=== PATIENT | female | born 1995 | race Caucasian/White ===

== ENCOUNTER 2017-11-09 16:20 | Emergency (ER) | payer BC ==
[~2017-11-09] VITALS: Ht 170.2 cm; Wt 81.1 kg
[~2017-11-09 16:20] MED LIST: ABILIFY15 MG PO; ADDERALL10 MG PO; CLONAZEPAM0.5 MG PO; LAMICTAL25 MG PO; LEXAPRO5 MG PO; PROZAC20 MG PO; SAPHRIS5 MG SL; TRAZODONE HCL50 MG PO
[2017-11-09 17:07] VITALS: BP 127/80
== END 2017-11-09 18:30 | disposition left against medical advice (07) ==
LOC: EME 16:20
DX: R21 Rash and other nonspecific skin eruption (principal); Z53.21 Procedure and treatment not carried out due to patient leaving prior to being seen by health care provider

== ENCOUNTER 2017-11-17 00:07 | Emergency (ER) | payer BC ==
[~2017-11-17] VITALS: Ht 167.6 cm; Wt 79.7 kg
[2017-11-17 00:20] VITALS: BP 120/88
== END 2017-11-17 00:33 | disposition left against medical advice (07) ==
LOC: EME 00:07
DX: M54.9 Dorsalgia, unspecified (principal); Z53.21 Procedure and treatment not carried out due to patient leaving prior to being seen by health care provider

== ENCOUNTER 2018-01-27 12:25 | Emergency (ER) | payer OTHER ==
[~2018-01-27] VITALS: Ht 170.2 cm; Wt 80.5 kg
[2018-01-27 12:47] LABS: HEMATOCRIT 43.3 % (36.0-46.0); HEMOGLOBIN 14.2 G/DL (11.9-15.5); MCH 27.1 PG (29.0-34.0); MCHC 32.8 G/DL (30.0-36.0); MCV 82.6 FL (83-99); PLATELET COUNT 259 K/uL (156-360); RBC DIS.WIDTH-CV 13.5 % (11.8-14.6); RBC DIS.WIDTH-SD 40.8 % (39-53); RED BLOOD COUNT 5.24 M/uL (3.80-5.20); WHITE BLOOD COUNT 7.1 K/uL (4.1-10.2)
[2018-01-27 12:57] LABS: ALBUMIN 4.3 g/dL (3.2-4.8); CHLORIDE 106 mEq/L (99-109); POTASSIUM 4.4 mEq/L (3.7-5.4); SODIUM 140 mEq/L (136-147)
[2018-01-27 12:59] LABS: GLUCOSE 78 mg/dL (70-99)
[2018-01-27 13:00] LABS: TOTAL PROTEIN 7.4 g/dL (6.4-8.3)
[2018-01-27 13:01] LABS: TOTAL BILIRUBIN 0.5 mg/dL (0.0-1.0)
[2018-01-27 13:03] LABS: ALKALINE PHOSPHATASE 61 IU/L (3-129); CREATININE 0.8 mg/dL (0.6-1.3); GFR ESTIMATE (CALCULATED) > 59 mL/min/
[2018-01-27 13:04] LABS: UREA NITROGEN (BUN) 15 mg/dL (9-23)
[2018-01-27 13:05] LABS: AST (GOT) 14 IU/L (2-34)
[2018-01-27 13:06] LABS: ALT (GPT) 10 IU/L (3-49)
[2018-01-27 13:08] LABS: QUANTITATIVE HCG < 4.0 MIU/ML
[2018-01-27 13:48] LABS: APPEARANCE SL.HAZY ((CLEAR)); BILIRUBIN NEGATIVE; BLOOD LARGE; COLOR YELLOW ((YELLOW)); GLUCOSE (STRIP) NEGATIVE; KETONES NEGATIVE; LEUKOCYTES NEGATIVE; NITRITE NEGATIVE; PROTEIN (STRIP) 30; SPECIFIC GRAVITY 1.025 (1.000-1.030); UROBILINOGEN 0.2 MG/DL (0.2-1.0)
[2018-01-27 13:56] LABS: BACTERIA RARE /HPF; EPITHELIAL CELLS RARE /HPF; MUCUS TRACE /LPF; RED BLOOD CELLS NONE SEEN /HPF (0-5); UCUL ADDED? NO; WHITE BLOOD CELLS 0-5 /HPF (0-5)
[2018-01-27 14:44] LABS: LIPASE 7 U/L (1.0-51.0)
[2018-01-27] MEDS ORDERED: BENTYL20 MG PO (17:07)
[2018-01-27] MEDS ORDERED: ZOFRAN ODT4 MG PO (17:07)
[2018-01-27 17:19] VITALS: BP 154/87
== END 2018-01-27 17:20 | disposition home or self-care (01) ==
LOC: EME 12:25
DX: R10.84 Generalized abdominal pain (principal); R11.0 Nausea; R19.7 Diarrhea, unspecified
CPT/HCPCS: 74019; 74022; 76856; 80053; 81003; 83690; 84702; 85027; 99281; 99284

== ENCOUNTER 2018-02-12 00:17 | Emergency (ER) | payer OTHER ==
[~2018-02-12] VITALS: Ht 170.2 cm; Wt 79.5 kg
[~2018-02-12 00:17] MED LIST changes: +BENTYL20 MG PO; +ZOFRAN ODT4 MG PO
[2018-02-12 00:25] VITALS: BP 130/86
[2018-02-12] MEDS ORDERED: NAPROSYN500 MG PO (01:04)
[2018-02-12] MEDS ORDERED: FLEXERIL10 MG PO (01:04)
== END 2018-02-12 02:32 | disposition left against medical advice (07) ==
LOC: EME 00:17
DX: S43.401A Unspecified sprain of right shoulder joint, initial encounter (principal); F41.9 Anxiety disorder, unspecified; F32.9 Major depressive disorder, single episode, unspecified; F31.9 Bipolar disorder, unspecified; Z88.8 Allergy status to other drugs, medicaments and biological substances
CPT/HCPCS: 73030; 99281; 99282

== ENCOUNTER 2018-03-31 21:42 | Emergency (ER) | payer OTHER ==
[~2018-03-31] VITALS: Ht 167.6 cm; Wt 78.2 kg
[~2018-03-31 21:42] MED LIST changes: +FLEXERIL10 MG PO; +NAPROSYN500 MG PO
[2018-03-31] MEDS ORDERED: VALTREX1000 MG PO (23:40)
[2018-03-31] MEDS ORDERED: KENALOG,ARISTOC60 ML TP (23:40)
[2018-03-31 23:49] VITALS: BP 135/95
== END 2018-03-31 23:51 | disposition home or self-care (01) ==
LOC: EME 21:42
DX: B02.9 Zoster without complications (principal); Z88.8 Allergy status to other drugs, medicaments and biological substances
CPT/HCPCS: 99281; 99284

== ENCOUNTER 2018-04-02 03:58 | Emergency (ER) | payer OTHER ==
[~2018-04-02] VITALS: Ht 167.6 cm; Wt 78.8 kg
[~2018-04-02 03:58] MED LIST changes: +KENALOG,ARISTOC60 ML TP; +VALTREX1000 MG PO
[2018-04-02 05:19] VITALS: BP 142/91
== END 2018-04-02 05:21 | disposition home or self-care (01) ==
LOC: EME 03:58
DX: F12.10 Cannabis abuse, uncomplicated (principal); R07.89 Other chest pain; R45.89 Other symptoms and signs involving emotional state; T43.615A Adverse effect of caffeine, initial encounter; F41.9 Anxiety disorder, unspecified; F32.9 Major depressive disorder, single episode, unspecified; F31.9 Bipolar disorder, unspecified; Z88.8 Allergy status to other drugs, medicaments and biological substances
CPT/HCPCS: 80048; 84484; 84702; 85027; 93005; 99281; 99284

== ENCOUNTER 2018-04-13 22:11 | Emergency (ER) | payer OTHER ==
[~2018-04-13] VITALS: Ht 167.6 cm; Wt 79.3 kg
[2018-04-14 01:32] VITALS: BP 146/80
== END 2018-04-14 01:32 | disposition home or self-care (01) ==
LOC: EME 22:11
DX: B01.9 Varicella without complication (principal); F31.9 Bipolar disorder, unspecified; F32.9 Major depressive disorder, single episode, unspecified; F41.9 Anxiety disorder, unspecified; F17.200 Nicotine dependence, unspecified, uncomplicated; Z88.8 Allergy status to other drugs, medicaments and biological substances
CPT/HCPCS: 99281; 99284